=== PATIENT | male | born 1970 | race Caucasian/White ===

== ENCOUNTER 2023-04-06 09:32 | Outpatient (REF) | payer BC, SELFPAY ==
[2023-04-06 19:10] LABS: ALT 47 U/L (16-63); AST 21 U/L (15-37); Albumin 3.9 g/dL (3.4-5.0); Alkaline Phosphatase 73 U/L (46-116); Anion Gap 8.9 mmol/L (3-11); BUN 12 mg/dL (7-18); Bilirubin, Total 0.4 mg/dL (0.2-1.0); CO2 27.1 mmol/L (21.0-32.0); CREATININE 0.9 mg/dL (0.70-1.30); Calcium 9.3 mg/dL (8.5-10.1); Calculated LDL 81 mg/dL (<100); Chloride 106 mmol/L (98-107); Cholesterol 181 mg/dL (<200); Glucose 120 mg/dL (74-106); HDL Cholesterol 47 mg/dL (40-60); Sodium 142 mmol/L (136-145); Total Protein 6.9 g/dL (6.4-8.2); Triglyceride 267 mg/dL (<150)
== END 2023-04-06 09:33 | disposition home or self-care (01) ==
LOC: NCHCN 09:32
PROVIDERS: Visit Provider Nurse Practitioner Family
DX: Z13.220 Encounter for screening for lipoid disorders (principal); Z13.1 Encounter for screening for diabetes mellitus
CPT/HCPCS: 80053; 80061

== ENCOUNTER 2023-10-05 19:21 | Inpatient (IN) | payer BC, SELFPAY ==
[2023-10-05] VITALS (8 sets, daily range): BP systolic 144–156; BP diastolic 75–90; PULSE 60–85; RESP 10–25; TEMP 36.5–36.9; O2SAT 93–100; BMI 31.1
--- NOTE | 2023-10-05 19:57 | W.SURGCON ---
Date of service: 10/05/23 Time of Service: 20:55 Assessment and Plan Assessment and plan (1) Anxiety: Status: Chronic (2) Elevated BP without diagnosis of hypertension: Status: Acute (3) Acid reflux: Status: Chronic (4) Bilateral carpal tunnel syndrome: (5) Snoring: Status: Acute (6) Tobacco dependence: Status: Acute (7) Esophageal foreign body: Status: Acute Assessment and plan: Informed consent is obtained for the procedural (explained in simple layman's terms that the pt. and/or family could understand) explaining risks vs benefits and alternatives to the procedure and consequences if we do not do the procedure and need/rational for the procedure. Risks include but are not limited to: bleeding, infection, perforation of esophagus, stomach, colon, small intestines, bronchus or trachea, or PTX. This would necessitate emergency surgery to repair the damage w/ possible ostomy; and other associated complications w/ the required surgery. Also complications of anesthesia including aspiration, WV/CVA/. Patient will have a sore throat for a few days. He needs to be on PPI lifelong. History of Present Illness Narrative: Patient is a 53-year-old male was in his normal state of good health. He was eating vegetable soup tonight now feels like he has an esophageal foreign body. He is unable to follow swallow his saliva. He does occasionally have problems with heartburn and indigestion. He is a smoker. BMI is 31. He does have a history of sleep apnea/ He does use a CPAP. He has never had problems like this in the past. He denies any history of heart attack or stroke. He denies any history of asthma or COPD. He denies any history of diabetes. His only surgery is bilateral carpal tunnel for which she had anesthesia and denies having any problems with Review of Systems All systems reviewed & are unremarkable except as noted in HPI and below PFSH All Active Problems (Updated 10/05/23 @ 21:03 by Chuyita Pisano DO) Esophageal foreign body (Acute) Elevated BP without diagnosis of hypertension (Acute) Snoring (Acute) Acid reflux (Chronic) Tobacco dependence (Acute) Anxiety (Chronic) Medical History (Updated 10/05/23 @ 21:03 by Chuyita Pisano DO) Bilateral carpal tunnel syndrome Social History Smoking/Tobacco Use Status: Current every day Tobacco Type: cigarettes Smoking risk assessment performed?: Yes Alcohol Intake: current Alcohol Intake frequency: holidays/special occasions only Drug use: Never Substance use type: does not use Exam Narrative Exam Narrative: PHYSICAL EXAM GENERAL APPEARANCE: Alert, healthy appearance, oriented, x 3,? in no acute distress HYDRATION: Well hydrated HEAD, EYES, EARS, NECK, THROAT: Head is normocephalic, pupils equal, round, reactive to light and accommodation, ocular movement intact, sclera clear and no jaundice. ?Dentition intact. LUNGS: normal respiration/normal chest excursion. ?Clear to auscultation bilaterally. ?No wheeze. ?HEART: Regular rate and rhythm. no murmurs ABDOMEN: soft and non-tender to palpation.? Results Last Vital Signs Temp 36.9 C 10/05/23 19:39 Pulse 82 10/05/23 19:39 Resp 18 10/05/23 19:39 BP 156/90 H 10/05/23 19:39 Pulse Ox 97 10/05/23 19:39
--- NOTE | 2023-10-05 20:04 | ED.GENADUL_ITS ---
Discharge Plan Discharge Details Chief Complaint: ForeignBody Admit Date/Time: 10/05/23 21:38 Admit Provider: Chuyita Pisano Attending Provider: Chuyita Pisano Primary Care Provider: Unknown,Unknown ED Provider: Ghazala Nobles Discharge Data Discharge Date/Time-TO BE ENTERED AT DEPARTURE: 10/05/23 22:06 HPI General Date/Time Provider Initiated Documentation: 10/05/23 19:29 . HPI Narrative: Santhosh is a 53-year-old male who presents to the emergency department accompanied by his for feeling of foreign body in his throat. He reports that he was eating soup this evening when he felt the [place] get stuck in his throat, says he has been feeling a flap around whenever he breathes or talks. He has been unable to handle secretions, says he has been spitting into a bag. Denies difficulty breathing, though he does feel like when the [place] flap makes it difficult to breathe. Denies history of GERD or food boluses in the past. Physical exam remarkable for patient who appears anxious, spitting into a bag. Unable to visualize foreign body with light. Full painless range of motion to neck. Easy work of breathing. History and presentation concerning for foreign body in the throat. Discussed case with Dr. Pisano, general surgeon. As patient is able to handle secretions, patient to be taken to the OR for scope. He and his are agreeable with plan of care. Related Data Home Medications ?Medication ?Instructions ?Recorded ?Confirmed Unknown [No Known Home Meds] 10/05/23 10/05/23 Allergies Allergy/AdvReac Type Severity Reaction Status Date / Time No Known Allergies Allergy Verified 06/13/22 09:50 General Stated Complaint: ForeignBody EILEEN: 3 Review of Systems Narrative: see HPI Exam Const General: cooperative and anxious Nutritional Appearance: average body habitus HENMT Head: normal to inspection Face and sinus: normal facial exam Mouth: oral mucosae normal and other (unable to visualize FB) Neck Neck: normal visual inspection, full ROM, no lymphadenopathy, trachea midline and supple Resp Effort & Inspection: normal respiratory effort Auscultation: clear to auscultation bilaterally Cardio Rate: regular rate Rhythm: regular rhythm Course Vital Signs Vital signs: Vital Signs Temperature 36.9 C 10/05/23 19:39 Pulse 82 10/05/23 19:39 Respiratory Rate 18 10/05/23 19:39 Blood Pressure 156/90 H 10/05/23 19:39 Pulse Oximetry 97 10/05/23 19:39 Temperature 36.9 C 10/05/23 19:39 Temperature Source Skin 10/05/23 19:39 Pulse 82 10/05/23 19:39 Respiratory Rate 18 10/05/23 19:39 Respiratory Effort Normal 10/05/23 19:41 Blood Pressure 156/90 H 10/05/23 19:39 Blood Pressure Position Sitting 10/05/23 19:39 Pulse Oximetry 97 10/05/23 19:39 Oxygen Delivery Method Room Air 10/05/23 19:39 Oxygen Flow Rate 0 10/05/23 19:39 Medical Decision Making Quality:SDOH Health Related Social Needs: No Data to Display PFSH All Active Problems (Updated 10/05/23 @ 21:03 by Chuyita Pisano DO) Esophageal foreign body (Acute) Elevated BP without diagnosis of hypertension (Acute) Snoring (Acute) Acid reflux (Chronic) Tobacco dependence (Acute) Anxiety (Chronic) Medical History (Updated 10/05/23 @ 21:03 by Chuyita Pisano DO) Bilateral carpal tunnel syndrome Social History Smoking/Tobacco Use Status: Current every day Tobacco Type: cigarettes Smoking risk assessment performed?: Yes Alcohol Intake: current Alcohol Intake frequency: holidays/special occasions only Drug use: Never Substance use type: does not use
--- NOTE | 2023-10-05 20:12 | W.ANESPRE ---
General Info Date of Service Date Performed: 10/05/23 Height: 6 ft Weight: 104.326 kg Body Mass Index (BMI): 31.1 Meds Allergies and Home Medications Allergies Allergy/AdvReac Type Severity Reaction Status Date / Time No Known Allergies Allergy Verified 06/13/22 09:50 Home Medication ?Medication ?Instructions ?Recorded nicotine (polacrilex) 2 mg buccal 2 mg buccal Q8H PRN 04/19/23 mini lozenge varenicline 0.5 mg (11)-1 mg (42) See Rx Instructions PO PER PKG DIR 04/19/23 tablets in a dose pack (Chantix Starting Month Box) Current Visit Medications: Current Medications Generic Name Dose Route Start Last Admin Trade Name Freq PRN Reason Stop Dose Admin IV Miscellaneous Supplies 1 each 10/05/23 20:00 Iv Access-Emergency Dept IV DIRECTED HUDSON Sodium Chloride 0 ml 10/05/23 19:51 Normal Saline Flush 10 Ml Syr IVP PRN PRN Sodium Chloride 0 ml 10/05/23 20:00 Normal Saline Flush 10 Ml Syr IVP BID HUDSON Sodium Chloride 0 ml 10/05/23 19:51 Normal Saline 10 Ml Vial IJ DIRECTED PRN PFSH Active Problems Active Problems: Problem Status Onset Code Bilateral carpal tunnel syndrome Acute G56.03 Elevated BP without diagnosis of hypertension Acute R03.0 Snoring Acute R06.83 Acid reflux Chronic K21.9 Tobacco dependence Acute F17.200 Anxiety Chronic F41.9 Tobacco Smoking/Tobacco Use Status: Current every day Tobacco Type: cigarettes Smoking cigarettes per day: 10 Alcohol Alcohol Intake: current Alcohol intake frequency: holidays/special occasions only Substance Use Substance use: Never Substance use type: does not use Vital Signs and Lab Results Vital Signs Most Recent Vital Signs in EMR: Most Recent Vital Signs Temp Pulse Resp BP Pulse Ox 36.9 C 82 18 156/90 H 97 10/05/23 19:39 10/05/23 19:39 10/05/23 19:39 10/05/23 19:39 10/05/23 19:39 Lab Results Blood Type / Crossmatch: No Data to Display Complete Blood Count: No Data to Display Complete Metabolic Panel: No Data to Display Liver Function Panel: No Data to Display Coagulation Panel: No Data to Display Cardiac Panel: No Data to Display Arterial Blood Gas: No Data to Display Venous Blood Gas: No Data to Display Pancreas Panel: No Data to Display Thyroid Panel: No Data to Display Infectious Disease: No Data to Display Blood Cultures: No Data to Display Toxicology Panel: No Data to Display Anesthesia Assessment and Plan Anesthesia History Personal History: No History of Anesthesia Complications Family History: No Family History of Anesthesia Complications Exercise Tolerance Exercise Tolerance: Metabolic Equivalents>4 Pertinent Negatives Pertinent Negatives: No Symptoms of GERD, No Major Cardiovascular Symptoms or Complaints, No Major Pulmonary Symptoms or Complaints and No History of CVA/TIA Cardiac & Pulmonary Exam Cardiac Exam: Normal S1/S2 Heart Sounds Pulmonary Exam: Clear Bilateral Breath Sounds Implantable Cardiac Device Does patient have a Pacemaker or an ICD?: No Airway Exam Known Difficult Airway: No Mallampati Class: 1 Mouth Opening: Normal (> 3cm) Thyromental Distance: Greater than 3 cm Neck Range of Motion: Full ROM Neck Circumference: Normal Teeth Condition: Normal Dentition ASA Classification ASA Score: ASA 2 Emergency Case?: No NPO Status NPO Status: Full Stomach Anesthesia Plan Resuscitation Status: Full Code Anesthesia Technique: General Anesthesia Airway Planned: Endotracheal Tube Monitors Used: Standard Monitors
[2023-10-05] MEDS: Lactated Ringers 1,000 ML 30 ML IV (20:59)
--- NOTE | 2023-10-05 21:48 | W.PM.ENDDOP ---
Date of service: 10/05/23 Time of Service: 21:48 Endoscopy Report DATE OF PROCEDURE: 10/05/23 PRE-OP DIAGNOSIS: esphageal foreign body POST-OP DIAGNOSIS: same SURGEON: Chuyita Pisano ANESTHESIA TYPE: General LMA/ETT ESTIMATED BLOOD LOSS: 0 PATHOLOGY: none sent COMPLICATIONS: None DISPOSITION: PACU PROCEDURE DESCRIPTION: Informed consent was obtained from the pt; explaining the benefits and Risks: bleeding, infections, perforations {which could require surgery or antibiotics and prolonged hospital stay}, or ostomy, and complications of anaesthesia, pauly aspiration). The foreign body feeling occurred while the patient was eating. Send patient does have a full stomach. The patient was take to the OR room and placed in a supine position. Monitors were applied and a time out was done. The patients name, date of , procedure type, allergies to medications and metal in their body was reviewed. General anesthesia was administered per the department of anesthesia. An Olympus gastroscope (see RN notes for scope #) was advanced through the oropharynx. The baby was noted to be stuck in one of the epiglottic folds. This is removed with a combination of a grasper and the Justin forceps. I then did attempt to pass the scope back down into the esophagus. There is a mild amount of redness and irritation indicative of chronic reflux noted. At this point the paralytic was wearing off and the patient was starting to cough and actively vomit food from his stomach up into the esophagus. The procedure was abandoned for patient's safety. The scope was removed. An awake sitting extubation was performed because patient did have a full stomach. During the course of extubation he may have aspirated a slight amount of contents. He was aggressively suctioned. He was observed for an hour post extubation. His sats were around 94%. He had a little bit of a sore throat, but it was tolerable. He had a good cough reflex. He was not coughing up any material. His lungs were clear to auscultation and he was not exhibiting any respiratory distress. Patient will be kept overnight on observed for any respiratory problems. Will discharge in a.m. on Protonix.
[2023-10-05] MEDS: Pantoprazole 40 MG VIAL IVP (22:56)
[2023-10-06 00:19] VITALS: PULSE 68; RESP 10; RESP 15; RESP 22; O2SAT 98
[2023-10-06] MEDS: Normal Saline Flush 10 ML SYR IVP (07:28)
[2023-10-06 07:32] VITALS: BP 142/85; PULSE 56; RESP 16; TEMP 36.8; O2SAT 94
--- NOTE | 2023-10-06 08:00 | DI.RAD_ITS ---
Exam(s) XR CHEST 2V PA LATERAL EXAM: XR CHEST 2V PA LATERAL CLINICAL HISTORY: aspiration after anethesia TECHNIQUE: 2D digital imaging was performed. Two views. COMPARISON: No exams were available for comparison FINDINGS: HEART: Normal size. Aorta: Not dilated. PULMONARY VASCULATURE: Normal. MEDIASTINUM: Unremarkable. LUNGS: Clear. PLEURAL SPACE: No pleural effusion or pneumothorax. BONE:Unremarkable for age. SOFT TISSUES: Unremarkable. IMPRESSION: No acute abnormality. DATA REPOSITORY: RADIATION DOSE DELIVERED:
--- NOTE | 2023-10-06 08:57 | W.ANESPOSTOP ---
Postoperative Evaluation Date, Time and Location Date Performed: 10/06/23 Time Performed: 08:58 Patient Location: Med/Surg Vital Signs Most Recent Imported Vital Signs: Most Recent Vital Signs Temp Pulse Resp BP Pulse Ox 36.8 C 56 L 16 142/85 H 94 10/06/23 07:32 10/06/23 07:32 10/06/23 07:32 10/06/23 07:32 10/06/23 07:32 Pain Score Most Recent Pain Score: Most Recent Pain Score Pain Level 0 10/06/23 07:32 Assessment Mental Status: Awake (Alert & Oriented to Patient Baseline) Airway and Respiratory Function: Patent airway with normal (patient baseline) respiratory exam Cardiovascular Function: Hemodynamically Stable Hydration Status: Adequately Hydrated Nausea & Vomiting: No Nausea or Vomiting Pain: Pt. Denies Any Pain Peripheral Nerve Block: Patient did not receive a nerve block Teaching Patient Teaching: Advised to seek followup for the following concerns (See explanation) (Discussed and patient verbalized understanding of s/s of aspiration pneumonia and to seek care at ER or PMD if any symptoms arise.) Concerns: Other (questionable aspiration on induction) Postoperative Comments:: lungs clear, denies SOB, CXR WNL at 0800 10/06/23
--- NOTE | 2023-10-06 10:34 | W.PM.PROGNOT ---
Date of Service Date of service: 10/06/23 Time of Service: 10:34 Assessment and Plan Assessment and plan (1) Anxiety: Status: Chronic (2) Elevated BP without diagnosis of hypertension: Status: Acute (3) Acid reflux: Status: Chronic (4) Bilateral carpal tunnel syndrome: (5) Snoring: Status: Acute (6) Tobacco dependence: Status: Acute (7) Esophageal foreign body: Status: Acute Assessment and plan: POD#1 S/P EGD with removal of foreign body. Patient was kept over night for observation, secondary to concerns for aspiration following his procedure. He is doing well this morning, with a minor sore throat. He tolerated liquid breakfast well without any difficulty. D/C home this morning Will start PPI Follow up in the surgical office in 2 weeks. Subjective Subjective Interval history since last seen: Patient reports he is doing well this morning, with a minor sore throat. Denies any nausea or vomiting. Exam Const General: cooperative, healthy appearing and comfortable Orientation: alert and oriented x3 Resp Effort & Inspection: normal respiratory effort, no audible wheezes and no cough Objective Last Vital Signs Temp 36.8 C 10/06/23 07:32 Pulse 56 L 10/06/23 07:32 Resp 16 10/06/23 07:32 BP 142/85 H 10/06/23 07:32 Pulse Ox 94 10/06/23 07:32 Time Spent with Patient Time Spent with Patient: <25 minutes Time was spent: preparing to see the patient(eg.review tests), obtaining and/or reviewing separately otained hiistory and counseling the patient
--- NOTE | 2023-10-06 10:39 | W.PM.DS.N ---
Date of service: 10/06/23 Time of Service: 10:39 DS: Diagnosis Discharge Diagnosis (1) Anxiety: Status: Chronic (2) Elevated BP without diagnosis of hypertension: Status: Acute (3) Acid reflux: Status: Chronic (4) Bilateral carpal tunnel syndrome: (5) Snoring: Status: Acute (6) Tobacco dependence: Status: Acute (7) Esophageal foreign body: Status: Acute Discharge Plan Disposition Patient Disposition: Home Condition: Good Discharge Details Reason For Visit: esophageal foreign body/possible aspiration Admit Date/Time: 10/05/23 21:38 Admit Provider: Chuyita Pisano Attending Provider: Chuyita Pisano Primary Care Provider: Unknown,Unknown Hospital Course Hospital Course: Patient presented to the ER with complaints of possible foreign body in his throat. He under went an EGD with removal of foreign body. Patient was kept over night for observation, secondary to concerns for aspiration following his procedure. He is doing well this morning, with a minor sore throat. He tolerated liquid breakfast well without any difficulty. D/C home this morning Will start daily PPI CXR this morning, did not show any abnormalities. Follow up in the surgical office in 2 weeks. Home Meds and New Rx's Prescriptions: New pantoprazole [Protonix] 40 mg tablet,delayed release (DR/EC) 40 mg PO DAILY Qty: 60 0RF Discharge Instructions Instructions: Acid reflux and GERD in adults Referrals: Chuyita Pisano DO [OSTEOPATHIC DOCTOR] - (2 week f/u ) Activity:: Activity as Tolerated Equipment/Supplies:: No Equipment Needed Diet:: Normal Diet Discharge Orders Discharge Orders: Discharge Order (Routine); Ordered 10/06/23 Ordered By: Luz Maria Anguiano DS: Summary Time Spent with Patient providing and/or coordinating discharge services: Less than 30 minutes Status at Discharge Functional status at discharge: independent ambulation Overall status at discharge: patient is back to baseline Mental Status: mental status grossly normal Speech and Movement: speech and movement normal Mood: congruent mood Affect: normal affect Quality:SDOH Health Related Social Needs: No Data to Display Exam Const General: cooperative, healthy appearing and comfortable Orientation: alert and oriented x3 Resp Effort & Inspection: normal respiratory effort, no audible wheezes and no cough Psych Mental Status: mental status grossly normal Speech and Movement: speech and movement normal Mood: congruent mood Affect: normal affect DS: Data Vitals/I&O Vitals and I&O: Vital Signs Temperature 36.8 C 10/06/23 07:32 Temperature Source Temporal Artery Scan 10/06/23 07:32 Pulse 56 L 10/06/23 07:32 Pulse Rhythm Regular 10/06/23 07:37 Respiratory Rate 16 10/06/23 07:32 Respiratory Effort Normal, Non-Labored 10/06/23 07:37 Respiratory Depth Normal 10/06/23 07:37 Respiratory Pattern Normal 10/06/23 07:37 Blood Pressure 142/85 H 10/06/23 07:32 Blood Pressure Position Sitting 10/05/23 19:39 Pulse Oximetry 94 10/06/23 07:32 Respiratory End-tidal CO2 30 10/05/23 21:53 Oxygen Delivery Method Room Air 10/06/23 07:32 Oxygen Flow Rate 0 10/06/23 07:32 Fraction of Inspired Oxygen (FIO2) 30 10/06/23 00:19 Pain Level 0 10/06/23 07:32 Intake & Output 10/05/23 10/06/23 10/06/23 18:59 06:59 18:59 Intake Total 801.5 / 801.5 Balance 801.5 / 801.5 Weight 104.326 kg Intake: IV 601.5 / 601.5 Oral 200 / 200 Other: Urine Color Pale Urine Appearance Clear Urine Odor None Comment voided x1 large amount in toilet Emesis Description None Voiding Methods Toilet PFSH All Active Problems (Updated 10/05/23 @ 23:33 by Ghazala Rousseau) Esophageal foreign body (Acute) Elevated BP without diagnosis of hypertension (Acute) Snoring (Acute) Acid reflux (Chronic) Tobacco dependence (Acute) Anxiety (Chronic) Medical History (Updated 10/05/23 @ 23:33 by Ghazala Rousseau) Bilateral carpal tunnel syndrome Social History Smoking/Tobacco Use Status: Current every day Tobacco Type: cigarettes Smoking risk assessment performed?: Yes Alcohol Intake: current Alcohol Intake frequency: holidays/special occasions only Drug use: Never Substance use type: does not use Housing: house Time Spent with Patient Time Spent with Patient: <45 minutes Time was spent: preparing to see the patient(eg.review tests), obtaining and/or reviewing separately otained hiistory and counseling the patient
--- NOTE | 2023-10-06 16:22 | PDOC.CMDIS ---
Date of service: 10/06/23 Time of Service: 10:00 LACE Index Scoring Tool Questions: Length of Stay (in days): 1 Was the patient admitted via the E.D.?: Yes E.D. Visits: 1 Answers: Total Score: 5 Risk of Readmission: Low Risk Care Management Discharge Plan Reason for Hospitalization: esophageal foreign body/possible aspiration Discharge Plan: Santhosh is discharged home via private vehicle. He will follow up with community providers and his discharge plan of care as instructed. No new services are ordered at the time of this discharge. Follow up with Surgical Office on 10/05/23, as scheduled. Patient/Family Education Needs: Review discharge instructions, limitations, medications and plan to follow up with community providers. Discuss ask me three. SDOH Health Related Social Needs: No Data to Display
== END 2023-10-06 11:05 | disposition home or self-care (01) | DRG 395 ==
LOC: ER 21:56 → MS 21:59
PROVIDERS: Admitting Provider Surgery; Emergency Provider Nurse Practitioner Family; Visit Provider Surgery
PROC: 0DC68ZZ Extirpation of Matter from Stomach, Via Natural or Artificial Opening Endoscopic (ICD-10-PCS; CPT 43247; principal; 2023-10-05 20:15)
DX: T18.108A Unspecified foreign body in esophagus causing other injury, initial encounter; F41.9 Anxiety disorder, unspecified; R05.9 Cough, unspecified; K21.9 Gastro-esophageal reflux disease without esophagitis; F17.210 Nicotine dependence, cigarettes, uncomplicated; G47.00 Insomnia, unspecified; R03.0 Elevated blood-pressure reading, without diagnosis of hypertension; G56.03 Carpal tunnel syndrome, bilateral upper limbs
CPT/HCPCS: 43247; 99285; 71046; 94660; J0330; J1100; J2250; J2405; J2470; J2704